=== PATIENT | male | born 1945 ===

== ENCOUNTER 2020-11-25 12:22 | Emergency (ER) | payer MEDICARE, OTHER ==
[~2020-11-25] VITALS: Ht 170.2 cm; Wt 75.0 kg
[~2020-11-25 12:22] MED LIST: MULT1TAB8 PO
--- OUTSIDE RECORDS SUMMARY | 2020-11-25 12:30 | CCD ---
Author Author [facility] Organization [facility] Address Unknown Phone Unavailable Care Team Providers Care Crew Clerk Name Role Phone Mukul THORNTON MD Unavailable Unavailable Mukul THORNTON MD Unavailable Unavailable Mukul THORNTON MD Unavailable Unavailable Mukul THORNTON MD Unavailable Unavailable Mukul THORNTON MD Unavailable Unavailable Mukul THORNTON MD Unavailable Unavailable Mukul THORNTON MD Unavailable Unavailable Mukul THORNTON MD Unavailable Unavailable Mukul THORNTON MD Unavailable Unavailable Mukul THORNTON MD Unavailable Unavailable Mukul THORNTON MD Unavailable Unavailable Mukul THORNTON MD Unavailable Unavailable Mukul THORNTON MD Unavailable Unavailable Mukul THORNTON MD Unavailable Unavailable Mukul THORNTON MD Unavailable Unavailable Mukul THORNTON MD Unavailable Unavailable Mukul THORNTON MD Unavailable Unavailable Mukul THORNTON MD Unavailable Unavailable Mukul THORNTON MD Unavailable Unavailable Mukul THORNTON MD Unavailable Unavailable Mukul THORNTON MD Unavailable Unavailable Mukul THORNTON MD Unavailable Unavailable Mukul THORNTON MD Unavailable Unavailable Mukul THORNTON MD Unavailable Unavailable Mukul THORNTON MD Unavailable Unavailable Mukul THORNTON MD Unavailable Unavailable Mukul THORNTON MD Unavailable Unavailable Mukul THORNTON MD Unavailable Unavailable Mukul THORNTON MD Unavailable Unavailable Mukul THORNTON MD Unavailable Unavailable Mukul THORNTON MD Unavailable Unavailable Mukul THORNTON MD Unavailable Unavailable Mukul THORNTON MD Unavailable Unavailable Mukul THORNTON MD Unavailable Unavailable Mukul THORNTON MD Unavailable Unavailable Mukul THORNTON MD Unavailable Unavailable Mukul THORNTON MD Unavailable Unavailable Mukul THORNTON MD Unavailable Unavailable Mukul THORNTON MD Unavailable Unavailable Mukul THORNTON MD Unavailable Unavailable Mukul THORNTON MD Unavailable Unavailable Mukul THORNTON MD Unavailable Unavailable Mukul THORNTON MD Unavailable Unavailable Mukul THORNTON MD Unavailable Unavailable Mukul THORNTON MD Unavailable Unavailable Mukul THORNTON MD Unavailable Unavailable Mukul THORNTON MD Unavailable Unavailable Mukul THORNTON MD Unavailable Unavailable Mukul THORNTON MD Unavailable Unavailable Mukul THORNTON MD Unavailable Unavailable Mukul THORNTON MD Unavailable Unavailable Mukul THORNTON MD Unavailable Unavailable HILLARY H MANUELA LEWIS Unavailable Unavailable HILLARY H MANUELA LEWIS Unavailable Unavailable Mukul THORNTON MD Unavailable Unavailable HILLARY H MANUELA LEWIS Unavailable Unavailable Mukul THORNTON MD Unavailable Unavailable Mukul THORNTON MD Unavailable Unavailable Mukul THORNTON MD Unavailable Unavailable Mukul THORNTON MD Unavailable Unavailable Mukul THORNTON MD Unavailable Unavailable Mukul THORNTON MD Unavailable Unavailable Mukul THORNTON MD Unavailable Unavailable Mukul THORNTON MD Unavailable Unavailable Mukul THORNTON MD Unavailable Unavailable Mukul THORNTON MD Unavailable Unavailable Muukl THORNTON MD Unavailable Unavailable Mukul THORNTON MD Unavailable Unavailable Mukul THORNTON MD Unavailable Unavailable Mukul THORNTON MD Unavailable Unavailable Mukul THORNTON MD Unavailable Unavailable Mukul THORNTON MD Unavailable Unavailable Mukul THORNTON MD Unavailable Unavailable Mukul THORNTON MD Unavailable Unavailable Mukul THORNTON MD Unavailable Unavailable Mukul THORNTON MD Unavailable Unavailable Mukul THORNTON MD Unavailable Unavailable Mukul THORNTON MD Unavailable Unavailable Mukul THORNTON MD Unavailable Unavailable Mukul THORNTON MD Unavailable Unavailable Mukul THORNTON MD Unavailable Unavailable Mukul THORNTON MD Unavailable Unavailable Mukul THORNTON MD Unavailable Unavailable Mukul THORNTON MD Unavailable Unavailable Mukul THORNTON MD Unavailable Unavailable Mukul THORNTON MD Unavailable Unavailable Mukul THORNTON MD Unavailable Unavailable Mukul THORNTON MD Unavailable Unavailable Mukul THORNTON MD Unavailable Unavailable Mukul THORNTON MD Unavailable Unavailable Mukul THORNTON MD Unavailable Unavailable Mukul THORNTON MD Unavailable Unavailable Mukul THORNTON MD Unavailable Unavailable Mukul THORNTON MD Unavailable Unavailable Mukul THRONTON MD Unavailable Unavailable Mukul THORNTON MD Unavailable Unavailable Mukul THORNTON MD Unavailable Unavailable Mukul THORNTON MD Unavailable Unavailable Mukul THORNTON MD Unavailable Unavailable Mukul THORNTON MD Unavailable Unavailable Mukul THORNTON MD Unavailable Unavailable Mukul THORNTON MD Unavailable Unavailable Mukul THORNTON MD Unavailable Unavailable Mukul THORNTON MD Unavailable Unavailable Mukul THORNTON MD Unavailable Unavailable Mukul THORNTON MD Unavailable Unavailable Mukul THORNTON MD Unavailable Unavailable Mukul THORNTON MD Unavailable Unavailable Mukul THORNTON MD Unavailable Unavailable Mukul THORNTON MD Unavailable Unavailable Mukul THORNTON MD Unavailable Unavailable Mukul THORNTON MD Unavailable Unavailable Mukul THORNTON MD Unavailable Unavailable Mukul THORNTON MD Unavailable Unavailable Mukul THORNTON MD Unavailable Unavailable Mukul THORNTON MD Unavailable Unavailable Mukul THORNTON MD Unavailable Unavailable Mukul THORNTON MD Unavailable Unavailable Mukul THORNTON MD Unavailable Unavailable Mukul THORNTON MD Unavailable Unavailable Mukul THORNTON MD Unavailable Unavailable Mukul THORNTON MD Unavailable Unavailable Mukul THORNTON MD Unavailable Unavailable Mukul THORNTON MD Unavailable Unavailable Mukul THORNTON MD Unavailable Unavailable Mukul THORNTON MD Unavailable Unavailable Mukul THORNTON MD Unavailable Unavailable Mukul THORNTON MD Unavailable Unavailable Mukul THORNOTN MD Unavailable Unavailable Mukul THORNTON MD Unavailable Unavailable Mukul THORNTON MD Unavailable Unavailable Mukul THORNTON MD Unavailable Unavailable Mukul THORNTON MD Unavailable Unavailable Mukul THORNTON MD Unavailable Unavailable Mukul THORNTON MD Unavailable Unavailable Mukul THORNTON MD Unavailable Unavailable Mukul THORNTON MD Unavailable Unavailable Mukul THORNTON MD Unavailable Unavailable Mukul THORNTON MD Unavailable Unavailable Mukul THORNTON MD Unavailable Unavailable Mukul THORNTON MD Unavailable Unavailable Mukul THORNTON MD Unavailable Unavailable Mukul THORNTON MD Unavailable Unavailable Mukul THORNTON MD Unavailable Unavailable Mukul THORNTON MD Unavailable Unavailable Mukul THORNTON MD Unavailable Unavailable Mukul THORNTON MD Unavailable Unavailable Mukul THORNTON MD Unavailable Unavailable Mukul THORNTON MD Unavailable Unavailable Mukul THORNTON MD Unavailable Unavailable Mukul THORNTON MD Unavailable Unavailable Mukul THORNTON MD Unavailable Unavailable ALLYSON LOPEZ MD Unavailable Unavailable ALLYSON LOPEZ MD Unavailable Unavailable ALLYSON LOPEZ MD Unavailable Unavailable ALLYSON LOPEZ MD Unavailable Unavailable ALLYSON LOPEZ MD Unavailable Unavailable ALLYSON LOPEZ MD Unavailable Unavailable ALLYSON LOPEZ MD Unavailable Unavailable ALLYSON LOPEZ MD Unavailable Unavailable ALLYSON LOPEZ MD Unavailable Unavailable ALLYSON LOPEZ MD Unavailable Unavailable ALLYSON LOPEZ MD Unavailable Unavailable ALLYSON LOPEZ MD Unavailable Unavailable ALLYSON LOPEZ MD Unavailable Unavailable ALLYSON LOPEZ MD Unavailable Unavailable ALLYSON LOPEZ MD Unavailable Unavailable ALLYSON LOPEZ MD Unavailable Unavailable ALLYSON LOPEZ MD Unavailable Unavailable ALLYSON LOPEZ MD Unavailable Unavailable ALLYSON LOPEZ MD Unavailable Unavailable ALLYSON LOPEZ MD Unavailable Unavailable ALLYSON LOPEZ MD Unavailable Unavailable ALLYSON LOPEZ MD Unavailable Unavailable ALLYSON LOPEZ MD Unavailable Unavailable ALLYSON LOPEZ MD Unavailable Unavailable ALLYSON LOPEZ MD Unavailable Unavailable ALLYSON LOPEZ MD Unavailable Unavailable ALLYSON LOPEZ MD Unavailable Unavailable ALLYSON LOPEZ MD Unavailable Unavailable ALLYSON LOPEZ MD Unavailable Unavailable ALLYSON LOPEZ MD Unavailable Unavailable ALLYSON LOPEZ MD Unavailable Unavailable ALLYSON LOPEZ MD Unavailable Unavailable ALLYSON LOPEZ MD Unavailable Unavailable ALLYSON LOPEZ MD Unavailable Unavailable ALLYSON LOPEZ MD Unavailable Unavailable ALLYSON LOPEZ MD Unavailable Unavailable ALLYSON LOPEZ MD Unavailable Unavailable ALLYSON LOPEZ MD Unavailable Unavailable ALLYSON LOPEZ MD Unavailable Unavailable ALLYSON LOPEZ MD Unavailable Unavailable ALLYSON LOPEZ MD Unavailable Unavailable ALLYSON LOPEZ MD Unavailable Unavailable ALLYSON LOPEZ MD Unavailable Unavailable ALLYSON LOPEZ MD Unavailable Unavailable ALLYSON LOPEZ MD Unavailable Unavailable ALLYSON LOPEZ MD Unavailable Unavailable ALLYSON LOPEZ MD Unavailable Unavailable ALLYSON LOPEZ MD Unavailable Unavailable ALLYSON LOPEZ MD Unavailable Unavailable ALLYSON LOPEZ MD Unavailable Unavailable ALLYSON LOPEZ MD Unavailable Unavailable ALLYSON LOPEZ MD Unavailable Unavailable ALLYSON LOPEZ MD Unavailable Unavailable ALLYSON LOPEZ MD Unavailable Unavailable ALLYSON LOPEZ MD Unavailable Unavailable ALLYSON LOPEZ MD Unavailable Unavailable ALLYSON LOPEZ MD Unavailable Unavailable ALLYSON LOPEZ MD Unavailable Unavailable ALLYSON LOPEZ MD Unavailable Unavailable ALLYSON LOPEZ MD Unavailable Unavailable ALLYSON LOPEZ MD Unavailable Unavailable ALLYSON LOPEZ MD Unavailable Unavailable ALLYSON LOPEZ MD Unavailable Unavailable ALLYSON LOPEZ MD Unavailable Unavailable ALLYSON LOPEZ MD Unavailable Unavailable ALLYSON LOPEZ MD Unavailable Unavailable ALLYSON LOPEZ MD Unavailable Unavailable ALLYSON LOPEZ MD Unavailable Unavailable ALLYSON LOPEZ MD Unavailable Unavailable ALLYSON LOPEZ MD Unavailable Unavailable ALLYSON LOPEZ MD Unavailable Unavailable ALLYSON LOPEZ MD Unavailable Unavailable ALLYSON LOPEZ MD Unavailable Unavailable ALLYSON LOPEZ MD Unavailable Unavailable ALLYSON LOPEZ MD Unavailable Unavailable ALLYSON LOPEZ MD Unavailable Unavailable Re-disclosure Warning The records that you are about to access may contain information from federally-assisted alcohol or drug abuse programs. If such information is present, then the following federally mandated warning applies: This information has been disclosed to you from records protected by federal confidentiality rules (42 CFR part 2). The federal rules prohibit you from making any further disclosure of this information unless further disclosure is expressly permitted by the written consent of the person to whom it pertains or as otherwise permitted by 42 CFR part 2. A general authorization for the release of medical or other information is NOT sufficient for this purpose. The Federal rules restrict any use of the information to criminally investigate or prosecute any alcohol or drug abuse patient.The records that you are about to access may contain highly sensitive health information, the redisclosure of which is protected by Article 27-F of the [facility] Public Health law. If you continue you may have access to information: Regarding HIV / AIDS; Provided by facilities licensed or operated by the [facility] Office of Mental Health; or Provided by the [facility] Office for People With Developmental Disabilities. If such information is present, then the following [facility] mandated warning applies: This information has been disclosed to you from confidential records which are protected by state law. State law prohibits you from making any further disclosure of this information without the specific written consent of the person to whom it pertains, or as otherwise permitted by law. Any unauthorized further disclosure in violation of state law may result in a fine or long-term sentence or both. A general authorization for the release of medical or other information is NOT sufficient authorization for further disc losure. Family History Family Member Name Family Member Gender Family Member Status Date o f Status Description Data Source(s) Unknown Female Problem [facility] ([facility] Unknown Unknown Problem [facility] ([facility]) Encounters Encounter Providers Location Date Indications Data Source(s ) Outpatient Attender: MANUELA THORNTON MD [facility] 11/2019 08:30:00 AM EST [facility] ([facility] Outpatient Attender: ALLYSON LOPEZ MDReferrer: MANUELA Oreilly MD 10/27/2019 08:17:53 AM EDT [facility] Medications Medication Brand Name Start Date Product Form Dose Route Admi nistrative Instructions Pharmacy Instructions Status Indications Reaction Description Data Source(s) 4 mg 11/22/2020 12:00:00 AM EDT tablets,dose pack 21 DIRECTED DIRECTED SOLD: 11/23/2020 Jorge marino Insurance Providers Payer name Policy type / Coverage type Policy ID Covered libertarian ID Covered libertarian's relationship to eckert Policy Eckert Plan Information [facility] Health Maintenance Organization (HMO) [id number] Se [id number] [facility] Health Maintenance Organization (HMO) [id number] Self [id number] [facility] Healthcare F [id number] SELF [id number] MEDICARE 4 [id number] 1 [id number] A Medicare - NGS Medicare Primary [id number] Self 1 [id number] MEDICARE A [id number] Self [id number] A Medicare - [place] Medicare Primary [id number] Self MEDICARE [id number] SP [id number] A Medicare C [id number] SELF [id number] [facility] HEALTH CARE [id number] SP [id number] Medicare C [id number] SELF [id number] [place] [id number] Self [facility] PHY [id number] SP [id number] [facility] Health Care Health Maintenance Organization (HMO) [id number] Self P 7 [id number] 1 [id number] SELF PAY 2 UNAVAILABLE 1 UNAVAILA BLE MVP 7 [id number] 1 [id number] Problems, Conditions, and Diagnoses No Information Surgeries/Procedures No Information Results ID Date Data Source [id number] 12/20/2019 09:36:00 AM EST [facility] ([facility] Name Value Range Interpretation Code Description Data Amparo rce(s) Supporting Document(s) Chol 212 mg/dL 0-200 Above high normal [facility] ([facility] CHRONIC KIDNEY DISEASE STAGING PER NKF: MALE GFR INTERPRETATION: 20-49 YRS: >60 mL/min Normal 50-59 YRS: >56 mL/min Normal 60-69 YRS: >49 mL/min Normal 70-79 YRS: >42 mL/min Normal 80 and above >35 mL/min Normal FEMALE GRF INTERPRETATION: 20-39 YRS: >60 mL/min Normal 40-49 YRS: >58 mL/min Normal 50-59 YRS: >51 mL/min Normal 60-69 YRS: >45 mL/min Normal 70-79 YRS: >39 mL/min Normal 80 and above >32 mL/min NormalCLASSIFICATION CHOLESTEROL FOR ADULTS CHILDREN/ADOLESCENTS* DESIRABLE: <200 MG/DL <170 MG/DL BORDER-LINE HIGH RISK: 200-239 MG/DL 170-199 MG/DL HIGH RISK: >240 MG/DL >200 MG/DL CLASS. FOR PRIMARY LDL CHOL PREVENTION: LDL CHOL-CHILD/ADOLESCENTS* DESIRABLE: <130 MG/DL <110 MG/DL BORDERLINE-HIGH RISK: 130-159 MG/DL 110-129 MG/DL HIGH RISK: >160 MG/DL >130 MG/DL *CHILDREN AND ADOLESCENTS REPRESENTS INDIVIDUALA AGED 2-19 YEARS EXCLUSIVE. Cholesterol in HDL [Mass/volume] in Serum or Plasma 61 mg/dL 35-55 Above high normal [facility] ([facility] CHRONIC KIDNEY DISEASE STAGING PER NKF: MALE GFR INTERPRETATION: 20-49 YRS: >60 mL/min Normal 50-59 YRS: >56 mL/min Normal 60-69 YRS: >49 mL/min Normal 70-79 YRS: >42 mL/min Normal 80 and above >35 mL/min Normal FEMALE GRF INTERPRETATION: 20-39 YRS: >60 mL/min Normal 40-49 YRS: >58 mL/min Normal 50-59 YRS: >51 mL/min Normal 60-69 YRS: >45 mL/min Normal 70-79 YRS: >39 mL/min Normal 80 and above >32 mL/min NormalCLASSIFICATION CHOLESTEROL FOR ADULTS CHILDREN/ADOLESCENTS* DESIRABLE: <200 MG/DL <170 MG/DL BORDER-LINE HIGH RISK: 200-239 MG/DL 170-199 MG/DL HIGH RISK: >240 MG/DL >200 MG/DL CLASS. FOR PRIMARY LDL CHOL PREVENTION: LDL CHOL-CHILD/ADOLESCENTS* DESIRABLE: <130 MG/DL <110 MG/DL BORDERLINE-HIGH RISK: 130- 159 MG/DL 110-129 MG/DL HIGH RISK: >160 MG/DL >130 MG/DL *CHILDREN AND ADOLESCENTS REPRESENTS INDIVIDUALA AGED 2-19 YEARS EXCLUSIVE. Trig 65 mg/dL 35-200 [facility] CHRONIC KIDNEY DISEASE STAGING PER NKF: MALE GFR INTERPRETATION: 20-49 YRS: >60 mL/min Normal 50-59 YRS: >56 mL/min Normal 60-69 YRS: >49 mL/min Normal 70-79 YRS: >42 mL/min Normal 80 and above >35 mL/min Normal FEMALE GRF INTERPRETATION: 20-39 YRS: >60 mL/min Normal 40-49 YRS: >58 mL/min Normal 50-59 YRS: >51 mL/min Normal 60-69 YRS: >45 mL/min Normal 70-79 YRS: >39 mL/min Normal 80 and above >32 mL/min NormalCLASSIFICATION CHOLESTEROL FOR ADULTS CHILDREN/ADOLESCENTS* DESIRABLE: <200 MG/DL <170 MG/DL BORDER-LINE HIGH RISK: 200-239 MG/DL 170-199 MG/DL HIGH RISK: >240 MG/DL >200 MG/DL CLASS. FOR PRIMARY LDL CHOL PREVENTION: LDL CHOL-CHILD/ADOLESCENTS* DESIRABLE: <130 MG/DL <110 MG/DL BORDERLINE-HIGH RISK: 130- 159 MG/DL 110-129 MG/DL HIGH RISK: >160 MG/DL >130 MG/DL *CHILDREN AND ADOLESCENTS REPRESENTS INDIVIDUALA AGED 2-19 YEARS EXCLUSIVE. LDL_C 138 Calc 75-129 Above high normal [facility] ([facility] CHRONIC KIDNEY DISEASE STAGING PER NKF: MALE GFR INTERPRETATION: 20-49 YRS: >60 mL/min Normal 50-59 YRS: >56 mL/min Normal 60-69 YRS: >49 mL/min Normal 70-79 YRS: >42 mL/min Normal 80 and above >35 mL/min Normal FEMALE GRF INTERPRETATION: 20-39 YRS: >60 mL/min Normal 40-49 YRS: >58 mL/min Normal 50-59 YRS: >51 mL/min Normal 60-69 YRS: >45 mL/min Normal 70-79 YRS: >39 mL/min Normal 80 and above >32 mL/min NormalCLASSIFICATION CHOLESTEROL FOR ADULTS CHILDREN/ADOLESCENTS* DESIRABLE: <200 MG/DL <170 MG/DL BORDER-LINE HIGH RISK: 200-239 MG/DL 170-199 MG/DL HIGH RISK: >240 MG/DL >200 MG/DL CLASS. FOR PRIMARY LDL CHOL PREVENTION: LDL CHOL-CHILD/ADOLESCENTS* DESIRABLE: <130 MG/DL <110 MG/DL BORDERLINE-HIGH RISK: 130- 159 MG/DL 110-129 MG/DL HIGH RISK: >160 MG/DL >130 MG/DL *CHILDREN AND ADOLESCENTS REPRESENTS INDIVIDUALA AGED 2-19 YEARS EXCLUSIVE. Cho/HDL Ratio 3.5 CALC [facility] CHRONIC KIDNEY DISEASE STAGING PER NKF: MALE GFR INTERPRETATION: 20-49 YRS: >60 mL/min Normal 50-59 YRS: >56 mL/min Normal 60-69 YRS: >49 mL/min Normal 70-79 YRS: >42 mL/min Normal 80 and above >35 mL/min Normal FEMALE GRF INTERPRETATION: 20-39 YRS: >60 mL/min Normal 40-49 YRS: >58 mL/min Normal 50-59 YRS: >51 mL/min Normal 60-69 YRS: >45 mL/min Normal 70-79 YRS: >39 mL/min Normal 80 and above >32 mL/min NormalCLASSIFICATION CHOLESTEROL FOR ADULTS CHILDREN/ADOLESCENTS* DESIRABLE: <200 MG/DL <170 MG/DL BORDER-LINE HIGH RISK: 200-239 MG/DL 170-199 MG/DL HIGH RISK: >240 MG/DL >200 MG/DL CLASS. FOR PRIMARY LDL CHOL PREVENTION: LDL CHOL-CHILD/ADOLESCENTS* DESIRABLE: <130 MG/DL <110 MG/DL BORDERLINE-HIGH RISK: 130- 159 MG/DL 110-129 MG/DL HIGH RISK: >160 MG/DL >130 MG/DL *CHILDREN AND ADOLESCENTS REPRESENTS INDIVIDUALA AGED 2-19 YEARS EXCLUSIVE. ID Date Data Source [id number] 12/20/2019 09:36:00 AM EST [facility] ([facility] Name Value Range Interpretation Code Description Data Amparo rce(s) Supporting Document(s) Creat 1.0 mg/dL 0.7-1.2 [facility] ([facility] CHRONIC KIDNEY DISEASE STAGING PER NKF: MALE GFR INTERPRETATION: 20-49 YRS: >60 mL/min Normal 50-59 YRS: >56 mL/min Normal 60-69 YRS: >49 mL/min Normal 70-79 YRS: >42 mL/min Normal 80 and above >35 mL/min Normal FEMALE GRF INTERPRETATION: 20-39 YRS: >60 mL/min Normal 40-49 YRS: >58 mL/min Normal 50-59 YRS: >51 mL/min Normal 60-69 YRS: >45 mL/min Normal 70-79 YRS: >39 mL/min Normal 80 and above >32 mL/min NormalCLASSIFICATION CHOLESTEROL FOR ADULTS CHILDREN/ADOLESCENTS* DESIRABLE: <200 MG/DL <170 MG/DL BORDER-LINE HIGH RISK: 200-239 MG/DL 170-199 MG/DL HIGH RISK: >240 MG/DL >200 MG/DL CLASS. FOR PRIMARY LDL CHOL PREVENTION: LDL CHOL-CHILD/ADOLESCENTS* DESIRABLE: <130 MG/DL <110 MG/DL BORDERLINE-HIGH RISK: 130- 159 MG/DL 110-129 MG/DL HIGH RISK: >160 MG/DL >130 MG/DL *CHILDREN AND ADOLESCENTS REPRESENTS INDIVIDUALA AGED 2-19 YEARS EXCLUSIVE. BUN 15 mg/dL 8-23 [facility] CHRONIC KIDNEY DISEASE STAGING PER NKF: MALE GFR INTERPRETATION: 20-49 YRS: >60 mL/min Normal 50-59 YRS: >56 mL/min Normal 60-69 YRS: >49 mL/min Normal 70-79 YRS: >42 mL/min Normal 80 and above >35 mL/min Normal FEMALE GRF INTERPRETATION: 20-39 YRS: >60 mL/min Normal 40-49 YRS: >58 mL/min Normal 50-59 YRS: >51 mL/min Normal 60-69 YRS: >45 mL/min Normal 70-79 YRS: >39 mL/min Normal 80 and above >32 mL/min NormalCLASSIFICATION CHOLESTEROL FOR ADULTS CHILDREN/ADOLESCENTS* DESIRABLE: <200 MG/DL <170 MG/DL BORDER-LINE HIGH RISK: 200-239 MG/DL 170-199 MG/DL HIGH RISK: >240 MG/DL >200 MG/DL CLASS. FOR PRIMARY LDL CHOL PREVENTION: LDL CHOL-CHILD/ADOLESCENTS* DESIRABLE: <130 MG/DL <110 MG/DL BORDERLINE-HIGH RISK: 130- 159 MG/DL 110-129 MG/DL HIGH RISK: >160 MG/DL >130 MG/DL *CHILDREN AND ADOLESCENTS REPRESENTS INDIVIDUALA AGED 2-19 YEARS EXCLUSIVE. Glu 95 mg/dL 70-110 [facility] CHRONIC KIDNEY DISEASE STAGING PER NKF: MALE GFR INTERPRETATION: 20-49 YRS: >60 mL/min Normal 50-59 YRS: >56 mL/min Normal 60-69 YRS: >49 mL/min Normal 70-79 YRS: >42 mL/min Normal 80 and above >35 mL/min Normal FEMALE GRF INTERPRETATION: 20-39 YRS: >60 mL/min Normal 40-49 YRS: >58 mL/min Normal 50-59 YRS: >51 mL/min Normal 60-69 YRS: >45 mL/min Normal 70-79 YRS: >39 mL/min Normal 80 and above >32 mL/min NormalCLASSIFICATION CHOLESTEROL FOR ADULTS CHILDREN/ADOLESCENTS* DESIRABLE: <200 MG/DL <170 MG/DL BORDER-LINE HIGH RISK: 200-239 MG/DL 170-199 MG/DL HIGH RISK: >240 MG/DL >200 MG/DL CLASS. FOR PRIMARY LDL CHOL PREVENTION: LDL CHOL-CHILD/ADOLESCENTS* DESIRABLE: <130 MG/DL <110 MG/DL BORDERLINE-HIGH RISK: 130- 159 MG/DL 110-129 MG/DL HIGH RISK: >160 MG/DL >130 MG/DL *CHILDREN AND ADOLESCENTS REPRESENTS INDIVIDUALA AGED 2-19 YEARS EXCLUSIVE. Na 136 mmol/L 136-145 [facility] ([facility] CHRONIC KIDNEY DISEASE STAGING PER NKF: MALE GFR INTERPRETATION: 20-49 YRS: >60 mL/min Normal 50-59 YRS: >56 mL/min Normal 60-69 YRS: >49 mL/min Normal 70-79 YRS: >42 mL/min Normal 80 and above >35 mL/min Normal FEMALE GRF INTERPRETATION: 20-39 YRS: >60 mL/min Normal 40-49 YRS: >58 mL/min Normal 50-59 YRS: >51 mL/min Normal 60-69 YRS: >45 mL/min Normal 70-79 YRS: >39 mL/min Normal 80 and above >32 mL/min NormalCLASSIFICATION CHOLESTEROL FOR ADULTS CHILDREN/ADOLESCENTS* DESIRABLE: <200 MG/DL <170 MG/DL BORDER-LINE HIGH RISK: 200-239 MG/DL 170-199 MG/DL HIGH RISK: >240 MG/DL >200 MG/DL CLASS. FOR PRIMARY LDL CHOL PREVENTION: LDL CHOL-CHILD/ADOLESCENTS* DESIRABLE: <130 MG/DL <110 MG/DL BORDERLINE-HIGH RISK: 130- 159 MG/DL 110-129 MG/DL HIGH RISK: >160 MG/DL >130 MG/DL *CHILDREN AND ADOLESCENTS REPRESENTS INDIVIDUALA AGED 2-19 YEARS EXCLUSIVE. K 4.6 mmol/L 3.5-5.1 [facility] ([facility] CHRONIC KIDNEY DISEASE STAGING PER NKF: MALE GFR INTERPRETATION: 20-49 YRS: >60 mL/min Normal 50-59 YRS: >56 mL/min Normal 60-69 YRS: >49 mL/min Normal 70-79 YRS: >42 mL/min Normal 80 and above >35 mL/min Normal FEMALE GRF INTERPRETATION: 20-39 YRS: >60 mL/min Normal 40-49 YRS: >58 mL/min Normal 50-59 YRS: >51 mL/min Normal 60-69 YRS: >45 mL/min Normal 70-79 YRS: >39 mL/min Normal 80 and above >32 mL/min NormalCLASSIFICATION CHOLESTEROL FOR ADULTS CHILDREN/ADOLESCENTS* DESIRABLE: <200 MG/DL <170 MG/DL BORDER-LINE HIGH RISK: 200-239 MG/DL 170-199 MG/DL HIGH RISK: >240 MG/DL >200 MG/DL CLASS. FOR PRIMARY LDL CHOL PREVENTION: LDL CHOL-CHILD/ADOLESCENTS* DESIRABLE: <130 MG/DL <110 MG/DL BORDERLINE-HIGH RISK: 130- 159 MG/DL 110-129 MG/DL HIGH RISK: >160 MG/DL >130 MG/DL *CHILDREN AND ADOLESCENTS REPRESENTS INDIVIDUALA AGED 2-19 YEARS EXCLUSIVE. BUN/Creatinine Ratio 15.4 CALC [facility] CHRONIC KIDNEY DISEASE STAGING PER NKF: MALE GFR INTERPRETATION: 20-49 YRS: >60 mL/min Normal 50-59 YRS: >56 mL/min Normal 60-69 YRS: >49 mL/min Normal 70-79 YRS: >42 mL/min Normal 80 and above >35 mL/min Normal FEMALE GRF INTERPRETATION: 20-39 YRS: >60 mL/min Normal 40-49 YRS: >58 mL/min Normal 50-59 YRS: >51 mL/min Normal 60-69 YRS: >45 mL/min Normal 70-79 YRS: >39 mL/min Normal 80 and above >32 mL/min NormalCLASSIFICATION CHOLESTEROL FOR ADULTS CHILDREN/ADOLESCENTS* DESIRABLE: <200 MG/DL <170 MG/DL BORDER-LINE HIGH RISK: 200-239 MG/DL 170-199 MG/DL HIGH RISK: >240 MG/DL >200 MG/DL CLASS. FOR PRIMARY LDL CHOL PREVENTION: LDL CHOL-CHILD/ADOLESCENTS* DESIRABLE: <130 MG/DL <110 MG/DL BORDERLINE-HIGH RISK: 130- 159 MG/DL 110-129 MG/DL HIGH RISK: >160 MG/DL >130 MG/DL *CHILDREN AND ADOLESCENTS REPRESENTS INDIVIDUALA AGED 2-19 YEARS EXCLUSIVE. CA 9.6 mg/dL 8.6-10.2 [facility] ([facility] CHRONIC KIDNEY DISEASE STAGING PER NKF: MALE GFR INTERPRETATION: 20-49 YRS: >60 mL/min Normal 50-59 YRS: >56 mL/min Normal 60-69 YRS: >49 mL/min Normal 70-79 YRS: >42 mL/min Normal 80 and above >35 mL/min Normal FEMALE GRF INTERPRETATION: 20-39 YRS: >60 mL/min Normal 40-49 YRS: >58 mL/min Normal 50-59 YRS: >51 mL/min Normal 60-69 YRS: >45 mL/min Normal 70-79 YRS: >39 mL/min Normal 80 and above >32 mL/min NormalCLASSIFICATION CHOLESTEROL FOR ADULTS CHILDREN/ADOLESCENTS* DESIRABLE: <200 MG/DL <170 MG/DL BORDER-LINE HIGH RISK: 200-239 MG/DL 170-199 MG/DL HIGH RISK: >240 MG/DL >200 MG/DL CLASS. FOR PRIMARY LDL CHOL PREVENTION: LDL CHOL-CHILD/ADOLESCENTS* DESIRABLE: <130 MG/DL <110 MG/DL BORDERLINE-HIGH RISK: 130- 159 MG/DL 110-129 MG/DL HIGH RISK: >160 MG/DL >130 MG/DL *CHILDREN AND ADOLESCENTS REPRESENTS INDIVIDUALA AGED 2-19 YEARS EXCLUSIVE. Co2 20.2 mmol/L 22.0-29.0 Below low normal [facility] ([facility] CHRONIC KIDNEY DISEASE STAGING PER NKF: MALE GFR INTERPRETATION: 20-49 YRS: >60 mL/min Normal 50-59 YRS: >56 mL/min Normal 60-69 YRS: >49 mL/min Normal 70-79 YRS: >42 mL/min Normal 80 and above >35 mL/min Normal FEMALE GRF INTERPRETATION: 20-39 YRS: >60 mL/min Normal 40-49 YRS: >58 mL/min Normal 50-59 YRS: >51 mL/min Normal 60-69 YRS: >45 mL/min Normal 70-79 YRS: >39 mL/min Normal 80 and above >32 mL/min NormalCLASSIFICATION CHOLESTEROL FOR ADULTS CHILDREN/ADOLESCENTS* DESIRABLE: <200 MG/DL <170 MG/DL BORDER-LINE HIGH RISK: 200-239 MG/DL 170-199 MG/DL HIGH RISK: >240 MG/DL >200 MG/DL CLASS. FOR PRIMARY LDL CHOL PREVENTION: LDL CHOL-CHILD/ADOLESCENTS* DESIRABLE: <130 MG/DL <110 MG/DL BORDERLINE-HIGH RISK: 130- 159 MG/DL 110-129 MG/DL HIGH RISK: >160 MG/DL >130 MG/DL *CHILDREN AND ADOLESCENTS REPRESENTS INDIVIDUALA AGED 2-19 YEARS EXCLUSIVE. CL 104.1 mmol/L 98.0-107.0 MEDENT ([facility] CHRONIC KIDNEY DISEASE STAGING PER NKF: MALE GFR INTERPRETATION: 20-49 YRS: >60 mL/min Normal 50-59 YRS: >56 mL/min Normal 60-69 YRS: >49 mL/min Normal 70-79 YRS: >42 mL/min Normal 80 and above >35 mL/min Normal FEMALE GRF INTERPRETATION: 20-39 YRS: >60 mL/min Normal 40-49 YRS: >58 mL/min Normal 50-59 YRS: >51 mL/min Normal 60-69 YRS: >45 mL/min Normal 70-79 YRS: >39 mL/min Normal 80 and above >32 mL/min NormalCLASSIFICATION CHOLESTEROL FOR ADULTS CHILDREN/ADOLESCENTS* DESIRABLE: <200 MG/DL <170 MG/DL BORDER-LINE HIGH RISK: 200-239 MG/DL 170-199 MG/DL HIGH RISK: >240 MG/DL >200 MG/DL CLASS. FOR PRIMARY LDL CHOL PREVENTION: LDL CHOL-CHILD/ADOLESCENTS* DESIRABLE: <130 MG/DL <110 MG/DL BORDERLINE-HIGH RISK: 130- 159 MG/DL 110-129 MG/DL HIGH RISK: >160 MG/DL >130 MG/DL *CHILDREN AND ADOLESCENTS REPRESENTS INDIVIDUALA AGED 2-19 YEARS EXCLUSIVE. TP 6.4 g/dL 6.6-8.7 Below low normal MEDENT ( [facility] CHRONIC KIDNEY DISEASE STAGING PER NKF: MALE GFR INTERPRETATION: 20-49 YRS: >60 mL/min Normal 50-59 YRS: >56 mL/min Normal 60-69 YRS: >49 mL/min Normal 70-79 YRS: >42 mL/min Normal 80 and above >35 mL/min Normal FEMALE GRF INTERPRETATION: 20-39 YRS: >60 mL/min Normal 40-49 YRS: >58 mL/min Normal 50-59 YRS: >51 mL/min Normal 60-69 YRS: >45 mL/min Normal 70-79 YRS: >39 mL/min Normal 80 and above >32 mL/min NormalCLASSIFICATION CHOLESTEROL FOR ADULTS CHILDREN/ADOLESCENTS* DESIRABLE: <200 MG/DL <170 MG/DL BORDER-LINE HIGH RISK: 200-239 MG/DL 170-199 MG/DL HIGH RISK: >240 MG/DL >200 MG/DL CLASS. FOR PRIMARY LDL CHOL PREVENTION: LDL CHOL-CHILD/ADOLESCENTS* DESIRABLE: <130 MG/DL <110 MG/DL BORDERLINE-HIGH RISK: 130- 159 MG/DL 110-129 MG/DL HIGH RISK: >160 MG/DL >130 MG/DL *CHILDREN AND ADOLESCENTS REPRESENTS INDIVIDUALA AGED 2-19 YEARS EXCLUSIVE. A/G Ratio 2.0 CALC [facility] ([facility] CHRONIC KIDNEY DISEASE STAGING PER NKF: MALE GFR INTERPRETATION: 20-49 YRS: >60 mL/min Normal 50-59 YRS: >56 mL/min Normal 60-69 YRS: >49 mL/min Normal 70-79 YRS: >42 mL/min Normal 80 and above >35 mL/min Normal FEMALE GRF INTERPRETATION: 20-39 YRS: >60 mL/min Normal 40-49 YRS: >58 mL/min Normal 50-59 YRS: >51 mL/min Normal 60-69 YRS: >45 mL/min Normal 70-79 YRS: >39 mL/min Normal 80 and above >32 mL/min NormalCLASSIFICATION CHOLESTEROL FOR ADULTS CHILDREN/ADOLESCENTS* DESIRABLE: <200 MG/DL <170 MG/DL BORDER-LINE HIGH RISK: 200-239 MG/DL 170-199 MG/DL HIGH RISK: >240 MG/DL >200 MG/DL CLASS. FOR PRIMARY LDL CHOL PREVENTION: LDL CHOL-CHILD/ADOLESCENTS* DESIRABLE: <130 MG/DL <110 MG/DL BORDERLINE-HIGH RISK: 130- 159 MG/DL 110-129 MG/DL HIGH RISK: >160 MG/DL >130 MG/DL *CHILDREN AND ADOLESCENTS REPRESENTS INDIVIDUALA AGED 2-19 YEARS EXCLUSIVE. Alb 4.3 g/dL 3.5-5.2 [facility] ([facility] CHRONIC KIDNEY DISEASE STAGING PER NKF: MALE GFR INTERPRETATION: 20-49 YRS: >60 mL/min Normal 50-59 YRS: >56 mL/min Normal 60-69 YRS: >49 mL/min Normal 70-79 YRS: >42 mL/min Normal 80 and above >35 mL/min Normal FEMALE GRF INTERPRETATION: 20-39 YRS: >60 mL/min Normal 40-49 YRS: >58 mL/min Normal 50-59 YRS: >51 mL/min Normal 60-69 YRS: >45 mL/min Normal 70-79 YRS: >39 mL/min Normal 80 and above >32 mL/min NormalCLASSIFICATION CHOLESTEROL FOR ADULTS CHILDREN/ADOLESCENTS* DESIRABLE: <200 MG/DL <170 MG/DL BORDER-LINE HIGH RISK: 200-239 MG/DL 170-199 MG/DL HIGH RISK: >240 MG/DL >200 MG/DL CLASS. FOR PRIMARY LDL CHOL PREVENTION: LDL CHOL-CHILD/ADOLESCENTS* DESIRABLE: <130 MG/DL <110 MG/DL BORDERLINE-HIGH RISK: 130- 159 MG/DL 110-129 MG/DL HIGH RISK: >160 MG/DL >130 MG/DL *CHILDREN AND ADOLESCENTS REPRESENTS INDIVIDUALA AGED 2-19 YEARS EXCLUSIVE. Alp 38.6 U/L 40-129 Below low normal [facility] ( [facility] CHRONIC KIDNEY DISEASE STAGING PER NKF: MALE GFR INTERPRETATION: 20-49 YRS: >60 mL/min Normal 50-59 YRS: >56 mL/min Normal 60-69 YRS: >49 mL/min Normal 70-79 YRS: >42 mL/min Normal 80 and above >35 mL/min Normal FEMALE GRF INTERPRETATION: 20-39 YRS: >60 mL/min Normal 40-49 YRS: >58 mL/min Normal 50-59 YRS: >51 mL/min Normal 60-69 YRS: >45 mL/min Normal 70-79 YRS: >39 mL/min Normal 80 and above >32 mL/min NormalCLASSIFICATION CHOLESTEROL FOR ADULTS CHILDREN/ADOLESCENTS* DESIRABLE: <200 MG/DL <170 MG/DL BORDER-LINE HIGH RISK: 200-239 MG/DL 170-199 MG/DL HIGH RISK: >240 MG/DL >200 MG/DL CLASS. FOR PRIMARY LDL CHOL PREVENTION: LDL CHOL-CHILD/ADOLESCENTS* DESIRABLE: <130 MG/DL <110 MG/DL BORDERLINE-HIGH RISK: 130- 159 MG/DL 110-129 MG/DL HIGH RISK: >160 MG/DL >130 MG/DL *CHILDREN AND ADOLESCENTS REPRESENTS INDIVIDUALA AGED 2-19 YEARS EXCLUSIVE. Globulin 2.1 CALC [facility] CHRONIC KIDNEY DISEASE STAGING PER NKF: MALE GFR INTERPRETATION: 20-49 YRS: >60 mL/min Normal 50-59 YRS: >56 mL/min Normal 60-69 YRS: >49 mL/min Normal 70-79 YRS: >42 mL/min Normal 80 and above >35 mL/min Normal FEMALE GRF INTERPRETATION: 20-39 YRS: >60 mL/min Normal 40-49 YRS: >58 mL/min Normal 50-59 YRS: >51 mL/min Normal 60-69 YRS: >45 mL/min Normal 70-79 YRS: >39 mL/min Normal 80 and above >32 mL/min NormalCLASSIFICATION CHOLESTEROL FOR ADULTS CHILDREN/ADOLESCENTS* DESIRABLE: <200 MG/DL <170 MG/DL BORDER-LINE HIGH RISK: 200-239 MG/DL 170-199 MG/DL HIGH RISK: >240 MG/DL >200 MG/DL CLASS. FOR PRIMARY LDL CHOL PREVENTION: LDL CHOL-CHILD/ADOLESCENTS* DESIRABLE: <130 MG/DL <110 MG/DL BORDERLINE-HIGH RISK: 130- 159 MG/DL 110-129 MG/DL HIGH RISK: >160 MG/DL >130 MG/DL *CHILDREN AND ADOLESCENTS REPRESENTS INDIVIDUALA AGED 2-19 YEARS EXCLUSIVE. Alt (SGPT) 20 U/L 0-41 [facility] ([facility] CHRONIC KIDNEY DISEASE STAGING PER NKF: MALE GFR INTERPRETATION: 20-49 YRS: >60 mL/min Normal 50-59 YRS: >56 mL/min Normal 60-69 YRS: >49 mL/min Normal 70-79 YRS: >42 mL/min Normal 80 and above >35 mL/min Normal FEMALE GRF INTERPRETATION: 20-39 YRS: >60 mL/min Normal 40-49 YRS: >58 mL/min Normal 50-59 YRS: >51 mL/min Normal 60-69 YRS: >45 mL/min Normal 70-79 YRS: >39 mL/min Normal 80 and above >32 mL/min NormalCLASSIFICATION CHOLESTEROL FOR ADULTS CHILDREN/ADOLESCENTS* DESIRABLE: <200 MG/DL <170 MG/DL BORDER-LINE HIGH RISK: 200-239 MG/DL 170-199 MG/DL HIGH RISK: >240 MG/DL >200 MG/DL CLASS. FOR PRIMARY LDL CHOL PREVENTION: LDL CHOL-CHILD/ADOLESCENTS* DESIRABLE: <130 MG/DL <110 MG/DL BORDERLINE-HIGH RISK: 130- 159 MG/DL 110-129 MG/DL HIGH RISK: >160 MG/DL >130 MG/DL *CHILDREN AND ADOLESCENTS REPRESENTS INDIVIDUALA AGED 2-19 YEARS EXCLUSIVE. Tbili 0.34 mg/dL 0.0-1.2 [facility] ([facility] CHRONIC KIDNEY DISEASE STAGING PER NKF: MALE GFR INTERPRETATION: 20-49 YRS: >60 mL/min Normal 50-59 YRS: >56 mL/min Normal 60-69 YRS: >49 mL/min Normal 70-79 YRS: >42 mL/min Normal 80 and above >35 mL/min Normal FEMALE GRF INTERPRETATION: 20-39 YRS: >60 mL/min Normal 40-49 YRS: >58 mL/min Normal 50-59 YRS: >51 mL/min Normal 60-69 YRS: >45 mL/min Normal 70-79 YRS: >39 mL/min Normal 80 and above >32 mL/min NormalCLASSIFICATION CHOLESTEROL FOR ADULTS CHILDREN/ADOLESCENTS* DESIRABLE: <200 MG/DL <170 MG/DL BORDER-LINE HIGH RISK: 200-239 MG/DL 170-199 MG/DL HIGH RISK: >240 MG/DL >200 MG/DL CLASS. FOR PRIMARY LDL CHOL PREVENTION: LDL CHOL-CHILD/ADOLESCENTS* DESIRABLE: <130 MG/DL <110 MG/DL BORDERLINE-HIGH RISK: 130- 159 MG/DL 110-129 MG/DL HIGH RISK: >160 MG/DL >130 MG/DL *CHILDREN AND ADOLESCENTS REPRESENTS INDIVIDUALA AGED 2-19 YEARS EXCLUSIVE. Anion Gap 16 mmol/L [facility] ([facility] CHRONIC KIDNEY DISEASE STAGING PER NKF: MALE GFR INTERPRETATION: 20-49 YRS: >60 mL/min Normal 50-59 YRS: >56 mL/min Normal 60-69 YRS: >49 mL/min Normal 70-79 YRS: >42 mL/min Normal 80 and above >35 mL/min Normal FEMALE GRF INTERPRETATION: 20-39 YRS: >60 mL/min Normal 40-49 YRS: >58 mL/min Normal 50-59 YRS: >51 mL/min Normal 60-69 YRS: >45 mL/min Normal 70-79 YRS: >39 mL/min Normal 80 and above >32 mL/min NormalCLASSIFICATION CHOLESTEROL FOR ADULTS CHILDREN/ADOLESCENTS* DESIRABLE: <200 MG/DL <170 MG/DL BORDER-LINE HIGH RISK: 200-239 MG/DL 170-199 MG/DL HIGH RISK: >240 MG/DL >200 MG/DL CLASS. FOR PRIMARY LDL CHOL PREVENTION: LDL CHOL-CHILD/ADOLESCENTS* DESIRABLE: <130 MG/DL <110 MG/DL BORDERLINE-HIGH RISK: 130- 159 MG/DL 110-129 MG/DL HIGH RISK: >160 MG/DL >130 MG/DL *CHILDREN AND ADOLESCENTS REPRESENTS INDIVIDUALA AGED 2-19 YEARS EXCLUSIVE. Ast (Sgot) 21 U/L 0-40 [facility] ([facility] CHRONIC KIDNEY DISEASE STAGING PER NKF: MALE GFR INTERPRETATION: 20-49 YRS: >60 mL/min Normal 50-59 YRS: >56 mL/min Normal 60-69 YRS: >49 mL/min Normal 70-79 YRS: >42 mL/min Normal 80 and above >35 mL/min Normal FEMALE GRF INTERPRETATION: 20-39 YRS: >60 mL/min Normal 40-49 YRS: >58 mL/min Normal 50-59 YRS: >51 mL/min Normal 60-69 YRS: >45 mL/min Normal 70-79 YRS: >39 mL/min Normal 80 and above >32 mL/min NormalCLASSIFICATION CHOLESTEROL FOR ADULTS CHILDREN/ADOLESCENTS* DESIRABLE: <200 MG/DL <170 MG/DL BORDER-LINE HIGH RISK: 200-239 MG/DL 170-199 MG/DL HIGH RISK: >240 MG/DL >200 MG/DL CLASS. FOR PRIMARY LDL CHOL PREVENTION: LDL CHOL-CHILD/ADOLESCENTS* DESIRABLE: <130 MG/DL <110 MG/DL BORDERLINE-HIGH RISK: 130- 159 MG/DL 110-129 MG/DL HIGH RISK: >160 MG/DL >130 MG/DL *CHILDREN AND ADOLESCENTS REPRESENTS INDIVIDUALA AGED 2-19 YEARS EXCLUSIVE. Osmolality-Calculated 272.3 CALC MED ENT ([facility] CHRONIC KIDNEY DISEASE STAGING PER NKF: MALE GFR INTERPRETATION: 20-49 YRS: >60 mL/min Normal 50-59 YRS: >56 mL/min Normal 60-69 YRS: >49 mL/min Normal 70-79 YRS: >42 mL/min Normal 80 and above >35 mL/min Normal FEMALE GRF INTERPRETATION: 20-39 YRS: >60 mL/min Normal 40-49 YRS: >58 mL/min Normal 50-59 YRS: >51 mL/min Normal 60-69 YRS: >45 mL/min Normal 70-79 YRS: >39 mL/min Normal 80 and above >32 mL/min NormalCLASSIFICATION CHOLESTEROL FOR ADULTS CHILDREN/ADOLESCENTS* DESIRABLE: <200 MG/DL <170 MG/DL BORDER-LINE HIGH RISK: 200-239 MG/DL 170-199 MG/DL HIGH RISK: >240 MG/DL >200 MG/DL CLASS. FOR PRIMARY LDL CHOL PREVENTION: LDL CHOL-CHILD/ADOLESCENTS* DESIRABLE: <130 MG/DL <110 MG/DL BORDERLINE-HIGH RISK: 130- 159 MG/DL 110-129 MG/DL HIGH RISK: >160 MG/DL >130 MG/DL *CHILDREN AND ADOLESCENTS REPRESENTS INDIVIDUALA AGED 2-19 YEARS EXCLUSIVE. eGFR Non-Afr. [place] 74 # [facility] ([facility] CHRONIC KIDNEY DISEASE STAGING PER NKF: MALE GFR INTERPRETATION: 20-49 YRS: >60 mL/min Normal 50-59 YRS: >56 mL/min Normal 60-69 YRS: >49 mL/min Normal 70-79 YRS: >42 mL/min Normal 80 and above >35 mL/min Normal FEMALE GRF INTERPRETATION: 20-39 YRS: >60 mL/min Normal 40-49 YRS: >58 mL/min Normal 50-59 YRS: >51 mL/min Normal 60-69 YRS: >45 mL/min Normal 70-79 YRS: >39 mL/min Normal 80 and above >32 mL/min NormalCLASSIFICATION CHOLESTEROL FOR ADULTS CHILDREN/ADOLESCENTS* DESIRABLE: <200 MG/DL <170 MG/DL BORDER-LINE HIGH RISK: 200-239 MG/DL 170-199 MG/DL HIGH RISK: >240 MG/DL >200 MG/DL CLASS. FOR PRIMARY LDL CHOL PREVENTION: LDL CHOL-CHILD/ADOLESCENTS* DESIRABLE: <130 MG/DL <110 MG/DL BORDERLINE-HIGH RISK: 130- 159 MG/DL 110-129 MG/DL HIGH RISK: >160 MG/DL >130 MG/DL *CHILDREN AND ADOLESCENTS REPRESENTS INDIVIDUALA AGED 2-19 YEARS EXCLUSIVE. eGFR 86 # [facility] ( [facility] CHRONIC KIDNEY DISEASE STAGING PER NKF: MALE GFR INTERPRETATION: 20-49 YRS: >60 mL/min Normal 50-59 YRS: >56 mL/min Normal 60-69 YRS: >49 mL/min Normal 70-79 YRS: >42 mL/min Normal 80 and above >35 mL/min Normal FEMALE GRF INTERPRETATION: 20-39 YRS: >60 mL/min Normal 40-49 YRS: >58 mL/min Normal 50-59 YRS: >51 mL/min Normal 60-69 YRS: >45 mL/min Normal 70-79 YRS: >39 mL/min Normal 80 and above >32 mL/min NormalCLASSIFICATION CHOLESTEROL FOR ADULTS CHILDREN/ADOLESCENTS* DESIRABLE: <200 MG/DL <170 MG/DL BORDER-LINE HIGH RISK: 200-239 MG/DL 170-199 MG/DL HIGH RISK: >240 MG/DL >200 MG/DL CLASS. FOR PRIMARY LDL CHOL PREVENTION: LDL CHOL-CHILD/ADOLESCENTS* DESIRABLE: <130 MG/DL <110 MG/DL BORDERLINE-HIGH RISK: 130- 159 MG/DL 110-129 MG/DL HIGH RISK: >160 MG/DL >130 MG/DL *CHILDREN AND ADOLESCENTS REPRESENTS INDIVIDUALA AGED 2-19 YEARS EXCLUSIVE. ID Date Data Source [id number] 12/20/2019 09:30:00 AM EST PILAR ([facility] Name Value Range Interpretation Code Description Data Amparo rce(s) Supporting Document(s) Prostate specific Ag [Mass/volume] in Serum or Plasma 2.87 ng/mL 0.0- 4.0 MEDENT ([facility] ID Date Data Source [id number] 10/27/2019 08:17:53 AM EDT [facility] Red: 1945Provider: Valeria Lopez: 10/27/2019 Reason For VisitVerbal consent obtained from the patient for telemedicine visit. This assessment was done using telemedicine as a result of social distancing due to the outbreak of COVID-19. MRI left ankleImages reviewed and subtalar arthritisDiagnosis left subtalar arthritis primaryPlan UCBL heel cup and modify activities Signatures Electronically signed by : Allyson Lopez M.D.; Oct 27 2019 8:17AM EST (Author) Name Value Range Interpretation Code Description Data Amparo rce(s) Supporting Document(s) ID Date Data Source [id number] 10/21/2019 01:22:00 PM EDT [facility] PATIENT MR#: [id number] NAME: SHAY MCCRACKEN QDATE OF : 1945REFERRING PHYSICIAN: Allyson Lorenzo DATE: 10/21/2019EXAM: MRI left Ankle INDICATION: Chronic left ankle pain. Evaluate for posterior tibial tendon tear.COMPARISON: Left ankle radiographs 07/19/2019, MRI left ankle 07/31/2011TECHNIQUE: MRI scan of the left ankle was performed using various scan planesand pulse sequences. FINDINGS: Lateral ligaments: The anterior tibiofibular, posterior tibiofibular, anterior talofibular,posterior talofibular, and calcaneofibular ligaments are intact.Medial ligaments: The tibiotalar deep deltoid and tibial spring ligaments are intact.Tendons: The posterior tibial tendon is intact. Very mild flexor hallucis longus tendonsheath fluid at the level of the tibiotalar joint may be secondary to a smalltibiotalar joint effusion versus minimal tenosynovitis. The flexor digitorumlongus tendon is intact. The peroneus longus and brevis tendons are intact. The anterior extensor tendons and Achilles tendon are intact.Fat is preserved within the sinus tarsi. No plantar fasciitis.There is moderate to high-grade marrow edema on both sides of the middlesubtalar joint with moderate to high-grade overlying cartilage thinning, mildsubchondral cystic change, and mild subchondral sclerosis.There is moderate spurring/peripheral osteophytosis within the peripheralposterior aspect of the posterior subtalar joint with overlying cartilagethinning.Mild dorsal talonavicular degenerative osteophytosis.Normal muscle signal. The tarsal tunnel is unremarkable. The Lisfranc ligamentcomplex is intact.IMPRESSION: 1. There is moderate to high- grade middle subtalar joint and moderate posterioraspect of the posterior subtalar joint degenerative change. Subchondral marrowedema on both sides of the middle subtalar joint suggests active stress reactivechanges, likely a source of pain. The middle subtalar joint degenerativechanges are mildly increased compared to prior remote 07/31/2011 MRI.2. Mild fluid within the flexor hallucis longus tendon sheath may be secondaryto a small tibiotalar joint effusion.Read by: Kobi Newton by: Kobi Newton Date: 10/21/2019 1:22:39 PMElectronically signed by: Kobi Savage signed: 10/21/2019 1:23:53 PM Name Value Range Interpretation Code Description Data Amparo rce(s) Supporting Document(s) Procedure Social History No Information Vital Signs ID Date Data Source UNK Name Value Range Interpretation Code Description Data Source(s) Systolic blood pressure 110 mm[Hg] 110 mm[Hg] M EDENT ([facility] Diastolic blood pressure 70 mm[Hg] 70 mm[Hg] MEDENT ([facility] Body mass index (BMI) [Ratio] 27.9 kg/m2 27.9 k g/m2 MED[facility] ([facility] Oxygen saturation in Arterial blood by Pulse oximetry 97 % 97 % MEDDEONTE ([facility] Body temperature 98.4 [degF] 98.4 [degF] MEDENT ([facility] Heart rate 52 /min 52 /min [facility] ([facility] Respiratory rate 14 /min 14 /min MEDENT ( [facility] Body height 67 [in_i] 67 [in_i] MEDENT ([facility] 5'7" Body weight 178.00 [lb_av] 178.00 [lb_av] MEDEN T ([facility] [place] body weight 148 [lb_av] 148 [lb_av] MEDEN T ([facility]
[2020-11-25] MEDS ORDERED: PRED10PA PO (12:32)
--- NOTE | 2020-11-25 13:12 | REP ---
INDICATION: Coronavirus workup COMPARISON: None. TECHNIQUE: Portable AP view of the chest FINDINGS: The mediastinum and cardiac silhouette are within normal limits for portable technique. The lung lin suggest chronic appearing changes. No discrete focal consolidation. No effusion or pneumothorax. Skeletal structures are intact. IMPRESSION: Chronic appearing changes suggested. No focal consolidation. <Electronically signed by Theodore Yadav > 11/25/20 [id number]
--- OUTSIDE RECORDS SUMMARY | 2020-11-25 13:17 | CCD ---
Author Author [facility] Organization [facility] Address Unknown Phone Unavailable Care Team Providers Care Business Administration Professor Name Role Phone Mukul THORNTON MD Unavailable [...] Unavailable Mukul THORNTON MD Unavailable Unavailable Mukul THORTNON MD Unavailable Unavailable Mukul THORNTON MD Unavailable [...] Unavailable ALLYSON LOPEZ MD Unavailable Unavailable ALLYSON OLPEZ MD Unavailable Unavailable ALLYSON LOPEZ MD Unavailable [...] is protected by Article 27-F of the [facility] Public Health law. If you continue you may have access to information: Regarding HIV / AIDS; Provided by facilities licensed or operated by the [facility] Office of Mental Health; or Provided by the [facility] Office for People With Developmental Disabilities. If such information is present, then the following [facility] mandated warning applies: This information has [...] law may result in a fine or fdc sentence or both. A general authorization for the release of medical or other information is NOT sufficient authorization for further disc losure. Family History Family Member Name Family Member Gender Family Member Status Date o f Status Description Data Source(s) Unknown Female Problem [facility] ([facility] Unknown Unknown Problem [facility] ([facility]) Encounters Encounter Providers Location Date Indications Data Source(s ) Outpatient Attender: MANUELA THORNTON MD [facility] 11/2019 08:30:00 AM EST [facility] ([facility] Outpatient Attender: ALLYSON LOPEZ MDReferrer: MANUELA Oreilly MD 10/27/2019 08:17:53 AM EDT [facility] Medications Medication Brand Name Start Date Product Form Dose Route Admi nistrative Instructions Pharmacy Instructions Status Indications Reaction Description Data Source(s) 4 mg 11/22/2020 12:00:00 AM EDT tablets,dose pack 21 DIRECTED DIRECTED SOLD: 11/23/2020 Jorge marino Insurance Providers Payer name Policy type / Coverage type Policy ID Covered libertarian ID Covered libertarian's relationship to eckert Policy Eckert Plan Information [facility] Health Maintenance Organization (HMO) [id number] Se lf [facility] Health Maintenance Organization (HMO) [id number] Self [id number] [facility] Healthcare F [id number] SELF [id number] MEDICARE 4 [id number] 1 [id number] A Medicare - NGS Medicare Primary [id number] Self 1 [id number] MEDICARE A [id number] Self [id number] A Medicare - [place] Medicare Primary [id number] Self MEDICARE [id number] SP [id number] A Medicare C [id number] SELF [id number] [facility] HEALTH CARE [id number] SP [id number] Medicare C [id number] SELF [id number] [place] [id number] Self [facility] PHY [id number] SP [id number] [facility] Health Care Health Maintenance Organization (HMO) [id number] Self P 7 [id number] 1 [id number] SELF PAY 2 UNAVAILABLE 1 UNAVAILA BLE MVP 7 [id number] 1 [id number] Problems, Conditions, and Diagnoses No Information Surgeries/Procedures No Information Results ID Date Data Source [id number] 12/20/2019 09:36:00 AM EST [facility] ([facility] Name Value Range Interpretation Code Description Data Amparo rce(s) Supporting Document(s) Chol 212 mg/dL 0-200 Above high normal [facility] ([facility] CHRONIC KIDNEY DISEASE [...] 2-19 YEARS EXCLUSIVE. ID Date Data Source [id number] 12/20/2019 09:36:00 AM EST P[facility] ([facility] Name Value Range Interpretation Code Description Data Amparo rce(s) Supporting Document(s) Creat 1.0 mg/dL 0.7-1.2 [facility] ([facility] CHRONIC KIDNEY DISEASE STAGING PER [...] 2-19 YEARS EXCLUSIVE. BUN/Creatinine Ratio 15.[address] [facility] ([facility] CHRONIC KIDNEY DISEASE STAGING PER [...] YEARS EXCLUSIVE. CL 104.1 mmol/L 98.0-107.0 [facility] ([facility] CHRONIC KIDNEY DISEASE STAGING PER [...] g/dL 6.6-8.7 Below low normal [facility] ( [facility] CHRONIC KIDNEY DISEASE [...] YEARS EXCLUSIVE. Globulin 2.1 CALC [facility] CHRONIC KIDNEY DISEASE STAGING [...] INDIVIDUALA AGED 2-19 YEARS EXCLUSIVE. eGFR Non-Afr. Kyrgyz 74 # [facility] ([facility] [...] 2-19 YEARS EXCLUSIVE. ID Date Data Source [id number] 12/20/2019 09:30:00 AM EST [facility] ([facility] Name Value Range Interpretation Code Description Data Amparo rce(s) Supporting Document(s) Prostate specific Ag [Mass/volume] in Serum or Plasma 2.87 ng/mL 0.0- 4.0 [facility] ([facility] ID Date Data Source [id number] 10/27/2019 08:17:53 AM EDT [facility]: Shay Red: 1945Provider: Valeria [...] rce(s) Supporting Document(s) ID Date Data Source [id number] 10/21/2019 01:22:00 PM EDT [facility] PATIENT MR#: [id number] NAME: SHAY MCCRACKEN QDATE OF : 1945REFERRING [...] pressure 110 mm[Hg] 110 mm[Hg] M EDENT ([facility] Diastolic blood pressure 70 mm[Hg] 70 mm[Hg] [facility] ([facility] Body mass index (BMI) [Ratio] 27.9 kg/m2 27.9 k g/m2 [facility] ([facility] Body temperature 98.4 [degF] 98.4 [degF] [facility] ([facility] Oxygen saturation in Arterial blood by Pulse oximetry 97 % 97 % [facility]ONTE ([facility] Heart rate 52 /min 52 /min [facility] ([facility] Respiratory rate 14 /min 14 /min [facility] ( [facility] Body height 67 [in_i] 67 [in_i] [facility] ([facility] 5'7" Body weight 178.00 [lb_av] 178.00 [lb_av] MEDEN T ([facility] [place] body weight 148 [lb_av] 148 [lb_av] MEDEN T ([facility]
[2020-11-25 13:41] LABS: BASO % 0.2 % (0.0-1.0); HEMATOCRIT 41.1 % (42.0-52.0); HEMOGLOBIN 13.7 g/dl (13.5-17.5); LYMPH # 0.9 10^3/uL (1.5-5.0); LYMPH % 7.2 % (24.0-44.0); MEAN CORPUSCULAR HEMOGLOBIN 30.4 pg (27.0-33.0); MEAN CORPUSCULAR HGB CONC 33.3 g/dl (32.0-36.5); MEAN CORPUSCULAR VOLUME 91.1 fl (80.0-96.0); MONO # 1.1 10^3/uL (0.0-0.8); MONO % 8.4 % (2.0-8.0); NEUTROPHILS # 10.7 10^3/uL (1.5-8.5); NEUTROPHILS % 83.8 % (36.0-66.0); PLATELET COUNT, AUTOMATED 351 10^3/uL (150-450); RED BLOOD COUNT 4.51 10^6/uL (4.30-6.10); WHITE BLOOD COUNT 12.8 10^3/uL (4.0-10.0)
[2020-11-25 13:54] LABS: INR 0.93; PROTHROMBIN TIME 12.8 SECONDS (12.7-14.5)
[2020-11-25 13:55] LABS: PARTIAL THROMBOPLASTIN TIME 28.7 SECONDS (25.9-37.0)
[2020-11-25 13:58] LABS: D-DIMER QUANT 1462.48 ng/ml (<500)
[2020-11-25 14:13] LABS: ALBUMIN 2.8 GM/DL (3.2-5.2); ALT/SGPT 249 U/L (12-78); BILIRUBIN,TOTAL 0.5 MG/DL (0.2-1.0); BLOOD UREA NITROGEN 18 MG/DL (7-18); C REACTIVE PROTEIN QUANTITATIV 2.49 MG/DL (0.00-0.30); CALCIUM LEVEL 8.7 MG/DL (8.8-10.2); CARBON DIOXIDE LEVEL 27 MEQ/L (21-32); CHLORIDE LEVEL 107 MEQ/L (98-107); CK-MB VALUE MASS 1.2 NG/ML (<3.6); CPK CREATINE PHOSPHOKINASE 45 U/L (39-308); CREATININE FOR GFR 0.97 MG/DL (0.70-1.30); FERRITIN 490 NG/ML (26-388); GLOMERULAR FILTRATION RATE > 60.0 (>42); GLUCOSE, FASTING 96 MG/DL (70-100); LDH LACTATE DEHYDROGENASE 290 U/L (87-241); MAGNESIUM LEVEL 2.3 MG/DL (1.8-2.4); MB/CK RELATIVE INDEX 2.67 (< OR =4); POTASSIUM SERUM 4.6 MEQ/L (3.5-5.1); SODIUM LEVEL 140 MEQ/L (136-145); TOTAL PROTEIN 6.8 GM/DL (6.4-8.2); TROPONIN I < 0.02 NG/ML (< 0.10)
[2020-11-25 16:45] VITALS: O2SAT 95
[2020-11-25 17:21] VITALS: BP 140/82
--- NOTE | 2020-11-25 19:56 | ECGEPIP ---
[facility] - ED Test Date: 2020-11-25 Pat Name: BALDEV LEO Department: Room: - Gender: Male [employer] Tr[employer] Pipe Bowls: LR : 1945 Requested By: GUSTAVO PANIAGUA Order Number: [id number] Reading MD: Boyd Delgado Measurements Intervals [place] Rate: 48 P: 53 TX: 166 QRS: -25 QRSD: 92 T: 15 QT: 444 QTc: 396 Interpretive Statements Sinus bradycardia Minimal voltage criteria for LVH, may be normal variant ( R in aVL ) NONSPECIFIC T WAVE ABNORMALITY(S) NO PRIORS FOR COMPARISON Electronically Signed on 11-25-2020 19:55:42 EDT by Boyd Delgado
== END 2020-11-25 17:20 | disposition home or self-care (01) ==
LOC: M ED 12:22
DX: U07.1 COVID-19 (principal); Z79.52 Long term (current) use of systemic steroids

== ENCOUNTER → 2020-12-26 | Outpatient (CLI) | payer MEDICARE, OTHER ==
[~2020-12-26] MED LIST changes: +PRED10PA PO
[2020-12-26 16:38] LABS: ALBUMIN 3.6 GM/DL (3.2-5.2); ALT/SGPT 34 U/L (12-78); BILIRUBIN,TOTAL 0.7 MG/DL (0.2-1.0); BLOOD UREA NITROGEN 16 MG/DL (7-18); CALCIUM LEVEL 9.5 MG/DL (8.8-10.2); CARBON DIOXIDE LEVEL 28 MEQ/L (21-32); CHLORIDE LEVEL 106 MEQ/L (98-107); CHOLESTEROL LEVEL 235 MG/DL (<200); CHOLESTEROL RISK RATIO 3.916 (<5); CREATININE FOR GFR 0.98 MG/DL (0.70-1.30); GLOMERULAR FILTRATION RATE > 60.0 (>42); GLUCOSE, FASTING 83 MG/DL (70-100); HDL CHOLESTEROL 60 MG/DL (>40); LDL CHOLESTEROL 156 MG/DL (<100); NON-HDL-C 175 MG/DL; POTASSIUM SERUM 4.7 MEQ/L (3.5-5.1); SODIUM LEVEL 140 MEQ/L (136-145); TOTAL PROTEIN 7.3 GM/DL (6.4-8.2); TRIGLYCERIDES LEVEL 94 MG/DL (<150)
== END ==
LOC: M WUC 12:05
PROVIDERS: ATTEND Internal Medicine
DX: E78.5 Hyperlipidemia, unspecified (principal)